=== PATIENT | female | born 1960 | race Caucasian/White ===

== ENCOUNTER → 2018-10-10 | Outpatient (CLI) | payer OTHER | END | disposition home or self-care (01) | LOC: PLD 07:38 → LAB SHORT 07:38 | DX: B35.1 Tinea unguium (principal); L60.2 Onychogryphosis | CPT/HCPCS: 88305; 88312 ==

== ENCOUNTER → 2019-04-25 | Outpatient (CLI) | payer OTHER ==
[2019-04-30 15:07] LABS: HPV 16 Negative (Negative); HPV 18 Negative (Negative); HPV OTHER HR TYPES Negative (Negative)
== END | disposition home or self-care (01) ==
LOC: LAB SHORT 12:55 → LAB 12:55
PROVIDERS: Obstetrics & Gynecology Gynecology
DX: Z12.4 Encounter for screening for malignant neoplasm of cervix (principal)
CPT/HCPCS: 87624; G0123

== ENCOUNTER → 2021-08-29 | Outpatient (CLI) | payer BC | LOC: LAB SHORT 11:00 | DX: N39.0 Urinary tract infection, site not specified (principal) | CPT/HCPCS: 87077; 87086; 87186 ==

== ENCOUNTER → 2023-04-04 | Outpatient (CLI) | payer OTHER ==
[2023-04-04 09:55] LABS: Source, Urine Clean Catch
[2023-04-04 10:56] LABS: Appearance, Urine Clear (Clear); Bilirubin, Urine Neg (Neg); Blood, Urine 4+ (Neg); Glucose Qualitative, Urine Neg (Neg); Ketones, Urine Neg (Neg); Leukocyte Esterase, Urine 2+ (Neg); Nitrite, Urine Neg (Neg); Protein, Urine Neg (Neg); Specific Gravity, Urine 1.005 (1.003-1.022); Urobilinogen, Urine NORM (Normal)
[2023-04-04 11:02] LABS: Color, Urine Pale Yellow (P-Yellow)
[2023-04-04 11:04] LABS: Bacteria Few /hpf; Red Blood Cells, Urine 25-50 /hpf (0-2); Squamous Epithelial Cells Not Seen /hpf (Few)
== END ==
LOC: EDSTATUS 08:42 → LAB 09:52 → LAB SHORT 09:52
PROVIDERS: Internal Medicine
DX: R31.9 Hematuria, unspecified (principal)
CPT/HCPCS: 81001; 87077; 87086; 87186

== ENCOUNTER 2024-03-28 06:40 | Day surgery (SDC) | payer OTHER ==
[~2024-03-28] VITALS: Ht 157.5 cm; Wt 62.5 kg
[2024-03-28] MEDS ORDERED: FUROSEMIDE40 MG (06:59)
[2024-03-28] MEDS ORDERED: LATA.005SO (07:00)
[2024-03-28] MEDS ORDERED: LEVSOD112 (07:00)
[2024-03-28] MEDS ORDERED: LOSA50 (07:00)
[2024-03-28] MEDS ORDERED: IMITREX100 MG (07:01)
[2024-03-28] MEDS ORDERED: Lactated Ringer's 1,000 ML IV ONE ×2 (07:43→07:50)
[2024-03-28] MEDS ORDERED: propofoL 50 ML IV ONE (07:43)
[2024-03-28] MEDS ORDERED: Lidocaine HCl/Pf 1% 5 ML VIAL ONE (07:51)
[2024-03-28 08:55] VITALS: BP 114/67
== END 2024-03-28 08:55 | disposition home or self-care (01) ==
LOC: ORSCSDS 06:40
PROVIDERS: Surgery
PROC: 0DJD8ZZ Inspection of Lower Intestinal Tract, Via Natural or Artificial Opening Endoscopic (ICD-10-PCS; principal; 2024-03-28 08:00)
DX: Z12.11 Encounter for screening for malignant neoplasm of colon (principal); K57.30 Diverticulosis of large intestine without perforation or abscess without bleeding; F41.9 Anxiety disorder, unspecified; E78.5 Hyperlipidemia, unspecified; E03.9 Hypothyroidism, unspecified; J45.909 Unspecified asthma, uncomplicated; I10 Essential (primary) hypertension; E66.01 Morbid (severe) obesity due to excess calories; Z68.41 Body mass index [BMI] 40.0-44.9, adult; Z79.899 Other long term (current) drug therapy
CPT/HCPCS: J2003; J2704; J7120